=== PATIENT | female | born 1985 | race Caucasian/White ===

== ENCOUNTER 2016-08-31 22:13 | Emergency (ER) | payer OTHER ==
--- NOTE | 2016-09-01 00:42 | ED CLINICAL REPORT ---
Clinical Report - Physicians/Mid Levels [facility] [address] [place] [address] 08/31/2016 22:14 Patient: MANOHAR CHO Time Seen: 22:24. Arrived- By private vehicle. Historian- patient. HISTORY OF PRESENT ILLNESS Is still present. Chief Complaint: HEADACHE. This started yesterday. Onset during light activity. It is described as similar to previous headaches. Located in the frontal region and region of the left eye. No neck pain. At its maximum, severity described as moderate. When seen in the E.D., severity described as moderate. Modifying factors: worsened by bright light and noise; relieved by nothing. The patient has had photophobia and nausea. No preceding symptoms, blurred vision, numbness, weakness or vomiting. (Pt states her normal home meds didn't help.). Similar symptoms previously: Many times. Recent medical care: Not recently seen/assessed. REVIEW OF SYSTEMS No fever, muscle aches, sinus pressure, ear pain or sore throat. No head injury, chest pain, difficulty breathing, cough or abdominal pain. No diarrhea, pain with urination, skin rash, enlarged lymph nodes or back pain. All systems otherwise negative, except as recorded above. PAST HISTORY Problems: Immunizations. UTI - Urinary Tract Infection. Dre Thyroiditis. Migraine Headache. Additional Surgeries: Eye surgery. Gallbladder Surgery. IUD. Vaginal reconstruction. Medications: Naratriptan HCl Oral (Tablet 2.5 mg) 1 tablet, as needed (as needed and repeat after 4 hours). Levothyroxine Sodium Oral 88 mcg, daily. Propranolol HCl Oral (Tablet 20 mg) 1 tablet, 2x a day. Zofran. Allergies: Doxycycline. Guaifenesin. Sulfa Antibiotics. SOCIAL HISTORY Never smoker. Occasional alcohol use. No drug use. ADDITIONAL NOTES The nursing notes have been reviewed. PHYSICAL EXAM Vital Signs: 08/31/2016 22:19 BP: 162/92. HR: 77. RR: 16. O2 saturation: 98%. Temp: 98.5 F. Pain level now: 8/10. Have been reviewed. Appearance: Alert. No acute distress. (Pt is alert, brightly conversant, and well-appearing.). Eyes: Pupils equal, round and reactive to light. Eyes normal inspection. ENT: Nose normal. Neck: Normal inspection. Neck supple. CVS: Normal heart rate and rhythm. Heart sounds normal. Pulses normal. Respiratory: No respiratory distress. Breath sounds normal. Abdomen: Soft and nontender. Back: Normal inspection. Skin: Skin warm and dry. Normal skin color. No rash. Normal skin turgor. Extremities: Extremities exhibit normal ROM. No lower extremity edema. Neuro: Oriented X 3. Alert. Mood/affect normal. Speech normal. Cranial nerves normal (as tested). No cerebellar findings. No motor deficit. No sensory deficit. LABS, X-RAYS, AND EKG Laboratory Tests: Urine: (IJEOMA: 08/31/2016 10:35) ( MsgRcvd 08/31/2016 22:46) Final results Test Result Flag Units (Reference) URINE NEGATIVE . Pulse Oximetry: 08/31/2016 22:19 O2 saturation: 98%. (FIO2 - room air). Interpretation: normal. PROGRESS AND PROCEDURES Course of Care: Dr. Niño, the pt's neurologist, did call and requested that the pt be given a fluid bolus and IV Zofran, Depakote, and Benadryl. Pt was given all but IV Depakote, as we did not have this available in the hospital. However, she was able to tolerate a PO dose of Depakote, and reported feeling much better. Patient and family counseled in person regarding the patient's stable condition, test results, diagnosis and need for follow-up. Concerns were addressed. Old medical records reviewed. Disposition: Discharged. Condition: stable and improved. CLINICAL IMPRESSION Acute recurrent migraine headache. INSTRUCTIONS Warnings: SEDATIVE MEDICATION: You were given sedative medication during your visit. Do not drive or operate dangerous machinery for 6 hours. GENERAL WARNINGS: Return or contact your physician immediately if your condition worsens or changes unexpectedly, if not improving as expected, or if other problems arise. Your Current Medications: CONTINUE TAKING THE FOLLOWING MEDICATIONS: Levothyroxine Sodium Oral : 88 mcg daily. Naratriptan HCl Oral : Tablet 2.5 mg, 1 tablet, prn, as needed and repeat after 4 hours. Propranolol HCl Oral : Tablet 20 mg, 1 tablet 2x a day. Zofran*. Follow-up: Follow up with your doctor as needed. Understanding of the discharge instructions verbalized by patient and family. (Electronically signed by Romana Fernando MD 09/04/2016 10:24)
--- NOTE | 2016-09-01 00:42 | ED NURSING NOTES ---
Clinical Report - Nurses [facility] [address] [place] [address] 08/31/2016 22:14 [id number] Triage time 22:19 Aug 31 2016. Acuity: LEVEL 3. Chief Complaint: HEADACHE. Alert. No acute distress. SEPSIS SCREEN: Sepsis Screen. Negative (no infection suspected/documented). RJ COMA SCORE: Rj Coma Scale: 15- eyes open spontaneously (4); best verbal response- oriented x 4 (5); best motor response- obeys commands (6). --22:27 Aviva Walton R.N. 22:19 08/31/16. BP: 162/92. HR: 77. RR: 16. O2 saturation: 98%. Temp: 98.5 F. Pain level now: 12/28. --22:27 Aviva Walton R.N. Weight: 90.7 kg stated. Height/Length: 68 inches Per Patient. BMI: 30.4. --22:27 Aviva Walton R.N. Medications Zofran. --22:21 Aviva Walton R.N. Propranolol HCl Oral (Tablet 20 mg) 1 tablet, 2x a day. --22:22 Aviva Walton R.N. Levothyroxine Sodium Oral 88 mcg, daily. --22:22 Aviva Walton R.N. Naratriptan HCl Oral (Tablet 2.5 mg) 1 tablet, as needed (as needed and repeat after 4 hours). --22:23 Aviva Walton R.N. Allergies Sulfa Antibiotics. --22:24 Aviva Walton R.N. Doxycycline. --22:24 Aviva Walton R.N. Guaifenesin. --22:24 Aviva Walton R.N. History Arrived by private vehicle. Historian: patient. Accompanied by family. This started last night. She has had nausea. Treatment [employer]: None. PAST MEDICAL HX: Immunizations: up-to-date. Last normal menstrual period- about 2 weeks ago. Denies current . SOCIAL HX: Never smoker. Occasional alcohol use. No drug use. No recent travel. No infectious disease exposure. No known contact with a sick individual. SELF HARM ASSESSMENT: A self harm assessment was performed. The patient answered "no" to the question "Do you have thoughts of harming or killing yourself?". FALL RISK ASSESSMENT: Fall risk assessment completed. No fall risk identified. NUTRITIONAL RISK ASSESSMENT: The nutritional risk assessment revealed no deficiencies. FUNCTIONAL ASSESSMENT: Functional assessment: no impairments noted. LEARNING NEEDS ASSESSMENT: The learning needs assessment revealed no barriers. ABUSE ASSESSMENT: Abuse assessment: The patient was asked "Do you feel safe in your home?". SKIN INTEGRITY ASSESSMENT: Skin integrity risk assessment completed. No skin integrity risk identified. --22:27 Aviva Walton R.N. PROBLEMS: Abdominal Pain. Immunizations. UTI - Urinary Tract Infection. Dre Thyroiditis. Migraine Headache. --22:25 Aviva Walton R.N. ADDITIONAL SURGERIES: Eye surgery. Gallbladder Surgery. IUD. Vaginal reconstruction. --22:25 Aviva Walton R.N. Interventions ID and allergy band on patient. HEADACHE protocol initiated. --22:27 Aviva Walton R.N. PHYSICAL ASSESSMENT Ambulatory to room. GENERAL / NEURO / PSYCH: Alert. Oriented X 4. Appears in no acute distress. HEENT: No facial asymmetry noted. RESPIRATORY: Respirations not labored. CVS: Capillary refill less than 2 seconds. GI / : Abdomen soft and nontender. SKIN: Skin is warm and dry. --22:28 Aviva Wlaton R.N. NURSING PROGRESS NOTES The plan of care for this patient includes an assessment with efforts to address the presence of pain. Patient gowned. Head of bed elevated. Lights dimmed. Two patient identifiers checked. Call light placed in reach. Side rails up x 1. Bed placed in lowest position. Brakes of bed on. --22:28 Aviva Walton R.N. 22:34 08/31/2016 Site #1 started via IV in the right antecubital space with an 20g angiocath, with aseptic technique and good blood return; one attempt. Blood drawn: rainbow set. Labeled in the presence of the patient and sent to the lab. Saline lock flushed with 10 mL saline. --22:34 Aviva Walton R.N. Patient ID band checked for patient name and birthdate: patient confirmed. Instructions provided to collect clean catch urine and patient verbalized understanding. Clean catch urine collected with return of yellow-colored clear urine; sample sent to lab for urinalysis, culture and HCG. Specimen labeled in the presence of the patient. --22:37 Aviva Walton R.N. 23:00 08/31/2016 Started bag #1 1000 mL IV Fluids IV NS (Saline); bolus of 1000 mL over 1 hour(s) via site #1 via IV pump. Allergies verified and confirmed 5 rights. IV patency established. IV site checked: no pain, redness, or swelling. IV flushed thoroughly pre- and post-medication administration. --23:00 Aviva Walton R.N. Care transferred and report received (from TANG Chicas). --23:20 Lyndsay Chacko R.N. 23:48 08/31/2016 Zofran (Ondansetron HCl) IVP 8 mg given over 1 minute(s) via site #1. Allergies verified and confirmed 5 rights. IV patency established. IV site checked: no pain, redness, or swelling. IV flushed thoroughly pre- and post-medication administration. IVP given by RN. --00:02 Lyndsay Chacko R.N. 23:50 08/31/2016 Benadryl (DiphenhydrAMINE HCl) IVP 25 mg given over 1 minute(s) via site #1. Confirmed 5 rights and sedative warning given to the patient and patient's family. IV patency established. IV site checked: no pain, redness, or swelling. IV flushed thoroughly pre- and post-medication administration. IVP given by RN. --00:03 Lyndsay Chacko R.N. 00:15 09/01/2016 Depakote (Divalproex Sodium) PO Tablets 1000 mg given. Allergies verified and confirmed 5 rights. --00:20 Lyndsay Chacko R.N. DISPOSITION / DISCHARGE Departure time: 54. No learning barriers present. Discharge instructions provided and reviewed with the patient. Patient verbalized understanding. Written instructions provided in [place]ian. The patient was discharged by the physician. She was discharged home and accompanied by family. She left the Emergency Department ambulatory and via private vehicle. Family member driving. Medication list reviewed and validated with the patient. --00:57 Lyndsay Chacko R.N. 00:55 09/01/16. BP: 138/80. HR: 69. RR: 20 (regular). O2 saturation: 99% on room air. Temp: deferred. Pain level now: 11/27. --00:57 Lyndsay Chacko R.N. Locked/Released at 09/01/2016 0:57 by Lyndsay Chacko R.N.
--- NOTE | 2016-09-01 00:42 | ED ORDER SUMMARY ---
..... Patient: MANOHAR CHO OrderSheet [facility] VisitID: [id number] [place] [address] 30y, F Registration Date/Time: 08/31/2016 ORDER SHEET Weight: 90.7 kg (stated) Allergies: Sulfa Antibiotics, Doxycycline, Guaifenesin GENERAL ORDERS: Urine Urgent (22:35 08/31/2016 Maryellen NGUYEN) (22:39 KKnebel R.N.) MEDICATION ORDERS: - (Depakote 1000mg IV) (23:39 08/31/2016 Maryellen NGUYEN) (Ack 23:40 HKone R.N.) (Cancelled: Other0:04 Maryellen NGUYEN) - (Depakote 1g PO) (00:03 09/01/2016 Maryellen NGUYEN) (Ack 0:04 HKone R.N.) (0:20 HKone R.N.) IV FLUIDS: IV NS : initial bolus 1000 mL (1000 mL/hr), then none - (NOW) (22:35 08/31/2016 Maryellen NGUYEN) (23:00 KKnebel R.N.) Zofran IV 8 mg (NOW) (23:39 08/31/2016 Maryellen NGUYEN) (Ack 23:40 HKone R.N.) (0:02 HKone R.N.) Benadryl IV 25 mg (NOW) (23:39 08/31/2016 Maryellen NGUYEN) (Ack 23:40 HKone R.N.) (0:03 HKone R.N.) ORDER SHEET NOTES: [Electronically signed by Lyndsay Chacko R.N. (00:57 09/01/2016)] [Electronically signed by Romana Fernando MD (10:24 09/04/2016)] [Electronically locked/signed by Lyndsay Chacko R.N. (00:57 09/01/2016)]
--- NOTE | 2016-09-01 00:42 | ED ORDER SUMMARY ---
..... Patient: MANOHAR CHO OrderSheet [facility] VisitID: [id number] [place] [address] 30y, F Registration Date/Time: 08/31/2016 ORDER SHEET Weight: 90.7 kg (stated) Allergies: Sulfa Antibiotics, Doxycycline, Guaifenesin GENERAL ORDERS: Urine Urgent (22:35 08/31/2016 Maryellen NGUYEN) (22:39 KKnebel R.N.) MEDICATION ORDERS: - (Depakote 1000mg IV) (23:39 08/31/2016 Maryellen NGUYEN) (Ack 23:40 HKone R.N.) (Cancelled: Other0:04 Maryellen NGUYEN) - (Depakote 1g PO) (00:03 09/01/2016 Maryellen NGUYEN) (Ack 0:04 HKone R.N.) (0:20 HKone R.N.) IV FLUIDS: IV NS : initial bolus 1000 mL (1000 mL/hr), then none - (NOW) (22:35 08/31/2016 Maryellen NGUYEN) (23:00 KKnebel R.N.) Zofran IV 8 mg (NOW) (23:39 08/31/2016 Maryellen NGUYEN) (Ack 23:40 HKone R.N.) (0:02 HKone R.N.) Benadryl IV 25 mg (NOW) (23:39 08/31/2016 Maryellen NGUYEN) (Ack 23:40 HKone R.N.) (0:03 HKone R.N.) ORDER SHEET NOTES: [Electronically signed by Lyndsay Chacko R.N. (00:57 09/01/2016)] [Electronically signed by Romana Fernando MD (10:24 09/04/2016)] [Electronically locked/signed by Lyndsay Chacko R.N. (00:57 09/01/2016)]
--- NOTE | 2016-09-04 10:24 | ED MAR SUMMARY ---
..... Medication Administration Record [facility] [address] [place] [address] Patient: MANOHAR CHO Visit ID: [id number] 30y, F Weight: 90.7 kg Height/Length: 68 in BMI: 30.4 ALLERGIES: Guaifenesin, Doxycycline, Sulfa Antibiotics Start 23:00 08/31/2016 Aviva Walton R.N. Medication Administered: IV NS (SALINE), Dose: IV Fluids, Bolus: 1000 mL over 1 hour(s), Dispensed: 1000 mL bag, Site: #1 right AC. Medication Ordered: IV NS : initial bolus 1000 mL (1000 mL/hr), then none - (NOW). Given 23:48 08/31/2016 Lyndsay Chacko R.N. Medication Administered: ZOFRAN [IVP] (ONDANSETRON HCL), Dose: 8 mg IVP over 1 minute(s), Site: #1 right AC. Medication Ordered: Zofran IV 8 mg (NOW). Given 23:50 08/31/2016 Lyndsay Chacko R.NMike Medication Administered: BENADRYL [IVP] (DIPHENHYDRAMINE HCL), Dose: 25 mg IVP over 1 minute(s), Site: #1 right AC. Medication Ordered: Benadryl IV 25 mg (NOW). Given 00:15 09/01/2016 Lyndsay Chacko R.NMike Medication Administered: DEPAKOTE [PO] (DIVALPROEX SODIUM), Dose: 1000 mg Tablets PO. Medication Ordered: - (Depakote 1g PO).
--- NOTE | 2016-09-04 10:24 | ED MAR SUMMARY ---
..... Medication Administration Record [facility] [address] [place] [address] Patient: MANOHAR CHO Visit ID: [id number] 30y, F Weight: 90.7 kg Height/Length: 68 in BMI: 30.4 ALLERGIES: Guaifenesin, Doxycycline, Sulfa Antibiotics Start 23:00 08/31/2016 Aviva Walton R.N. Medication Administered: IV NS (SALINE), Dose: IV Fluids, Bolus: 1000 mL over 1 hour(s), Dispensed: 1000 mL bag, Site: #1 right AC. Medication Ordered: IV NS : initial bolus 1000 mL (1000 mL/hr), then none - (NOW). Given 23:48 08/31/2016 Lyndsay Chacko R.N. Medication Administered: ZOFRAN [IVP] (ONDANSETRON HCL), Dose: 8 mg IVP over 1 minute(s), Site: #1 right AC. Medication Ordered: Zofran IV 8 mg (NOW). Given 23:50 08/31/2016 Lyndsay Chacko R.NMike Medication Administered: BENADRYL [IVP] (DIPHENHYDRAMINE HCL), Dose: 25 mg IVP over 1 minute(s), Site: #1 right AC. Medication Ordered: Benadryl IV 25 mg (NOW). Given 00:15 09/01/2016 Lyndsay Chacko R.NMike Medication Administered: DEPAKOTE [PO] (DIVALPROEX SODIUM), Dose: 1000 mg Tablets PO. Medication Ordered: - (Depakote 1g PO).
--- NOTE | 2016-09-04 10:24 | ED MED RECONCILIATION SUMMARY ---
Patient: MANOHAR CHO Medication Reconciliation Report VisitID: [id number] [address] [place] [address] 30y, F Registration Date/Time: 08/31/2016 Weight: 90.7 kg Height/Length: 68 in. BMI: 30.4 ALLERGIES: Doxycycline, Guaifenesin, Sulfa Antibiotics The patient's Home Medications are listed below: CONTINUE TAKING THE FOLLOWING MEDICATIONS: Levothyroxine Sodium Oral 88 mcg, daily Naratriptan HCl Oral (2.5 mg) 1 tablet, as needed and repeat after 4 hours Propranolol HCl Oral (20 mg) 1 tablet, 2x a day Zofran The source(s) of the original Home Medication information: Not obtained. The following Medications were given to the patient in the Emergency Department: IV NS IV Fluids bolus 1000 mL over 1 hour(s), administered: 08/31/2016 11:00:00 PM Zofran [IVP] IVP 8 mg, administered: 08/31/2016 11:48:00 PM Benadryl [IVP] IVP 25 mg, administered: 08/31/2016 11:50:00 PM Depakote [PO] PO 1000 mg, administered: 09/01/2016 12:15:00 AM The following Medications were prescribed to the patient: None.
--- NOTE | 2016-09-04 10:24 | ED DISCHARGE INSTRUCTIONS ---
Patient: MANOHAR CHO General Instructions [facility] VisitID: [id number] [place] [address] 30y, F Registration Date/Time: 08/31/2016 Acute recurrent migraine headache. INSTRUCTIONS Warnings: SEDATIVE MEDICATION: You were given sedative medication during your visit. Do not drive or operate dangerous machinery for 6 hours. GENERAL WARNINGS: Return or contact your physician immediately if your condition worsens or changes unexpectedly, if not improving as expected, or if other problems arise. Your Current Medications: CONTINUE TAKING THE FOLLOWING MEDICATIONS: Levothyroxine Sodium Oral : 88 mcg daily. Naratriptan HCl Oral : Tablet 2.5 mg, 1 tablet, prn, as needed and repeat after 4 hours. Propranolol HCl Oral : Tablet 20 mg, 1 tablet 2x a day. Zofran*. Follow-up: Follow up with your doctor as needed. Understanding of the discharge instructions verbalized by patient and family. ADDITIONAL INFORMATION Migraine Headache Migraine headaches are related to changes in blood flow to the brain. This causes throbbing or constant pain on one or both sides of the head. The pain may last from a few hours to several days. There is usually nausea, vomiting, sensitivity to light and sound, and blurred vision. A migraine attack may be triggered by emotional stress, hormone changes during the menstrual cycle, oral contraceptives, alcohol use, certain foods containing tyramine, eye strain, weather changes, missing meals, or too little or too much sleep. Home Care For This Headache: 1) If you were given pain medicine for this headache, do not drive yourself home . Arrange for a ride, instead. When you get home, try to sleep. You should feel much better when you wake up. 2) Migraine headaches may improve with an ice pack on the forehead or at the base of the skull. Heat to the back of your neck may relieve any neck spasm. 3) Drink only clear liquids or eat a very light diet to avoid nausea/vomiting until symptoms improve. Preventing Future Headaches: 1) Pay attention to those factors that seem to trigger your headache. Try to avoid them when you can. If you have frequent headaches, it is useful to keep a diary of what you were doing, feeling or eating in the hours before each attack. Show this to your doctor to help find the cause of your headaches. a) If you feel that stress is a factor in your headaches, look at the sources of stress in your life. Find ways to release the build-up of those stresses by using regular exercise, relaxation methods (yoga, meditation), bio-feedback or simply taking time-out for yourself. For more information about this, consult your doctor or go to a local bookstore and review books and tapes on this subject. b) Tyramine is a substance present in the following foods : chocolate, yogurt, all cheeses except cottage cheese and cream cheese. smoked or pickled fish and meat (including patel, caviar, bologna, pepperoni, salami), liver, avocados, bananas, figs, raisins, and red wine. Be aware that these foods may trigger a migraine in some persons. Try taking these foods out of your diet for 1-2 months to see if this reduces headache frequency. Treating Future Attacks: 1) At the first sign of a headache, take time out if possible. Find a quiet, dark, comfortable place to sit or lie down. Let yourself relax or sleep. 2) An ice pack on the forehead or area of greatest pain may help. If you are having muscle spasm and tightness of the neck, a heating pad and massage to this area may be helpful. 3) If you have been prescribed a medicine to stop a migraine headache, use this at the very first warning sign of the headache (aura or initial pain) for best results. Follow Up with your doctor if the headache is not better within the next 24 hours. If you have frequent headaches you should discuss a treatment plan with your primary care doctor. Ask if you can have medicine to take at home the next time you get a bad headache. Poorly controlled chronic headaches may require a referral to a neurologist (headache specialist). Get Prompt Medical Attention if any of the following occur: Your head pain gets worse, or does not improve within 24 hours Repeated vomiting (cant keep liquids down) Sinus or ear or throat pain (not already reported) Fever of 100.4 F (38 C) or higher, or as directed by your healthcare provider Stiff neck Extreme drowsiness, confusion or fainting Dizziness, vertigo (dizziness with spinning sensation) Weakness of an arm or leg or one side of the face Difficulty with speech or vision You have been given the following additional information: Headache, Migraine (Classical) (Electronically signed by Romana Fernando MD 09/04/2016 10:24)
--- NOTE | 2016-09-04 10:24 | ED MED RECONCILIATION SUMMARY ---
Patient: MANOHAR CHO Medication Reconciliation Report [facility] VisitID: [id number] [address] [place] [address] 30y, F Registration Date/Time: 08/31/2016 Weight: 90.7 kg Height/Length: 68 in. BMI: 30.4 ALLERGIES: Doxycycline, Guaifenesin, Sulfa Antibiotics The patient's Home Medications are listed below: CONTINUE TAKING THE FOLLOWING MEDICATIONS: Levothyroxine Sodium Oral 88 mcg, daily Naratriptan HCl Oral (2.5 mg) 1 tablet, as needed and repeat after 4 hours Propranolol HCl Oral (20 mg) 1 tablet, 2x a day Zofran The source(s) of the original Home Medication information: Not obtained. The following Medications were given to the patient in the Emergency Department: IV NS IV Fluids bolus 1000 mL over 1 hour(s), administered: 08/31/2016 11:00:00 PM Zofran [IVP] IVP 8 mg, administered: 08/31/2016 11:48:00 PM Benadryl [IVP] IVP 25 mg, administered: 08/31/2016 11:50:00 PM Depakote [PO] PO 1000 mg, administered: 09/01/2016 12:15:00 AM The following Medications were prescribed to the patient: None.
== END 2016-09-01 00:55 | disposition home or self-care (01) ==
LOC: ED SRH 22:13
DX: G43.909 Migraine, unspecified, not intractable, without status migrainosus (principal); E06.3 Autoimmune thyroiditis; Z79.899 Other long term (current) drug therapy; Z88.1 Allergy status to other antibiotic agents; Z88.8 Allergy status to other drugs, medicaments and biological substances
CPT/HCPCS: 93070